=== PATIENT | male | born 1940 | race Caucasian/White ===

== ENCOUNTER 2019-11-11 11:43 | Inpatient (IN) ==
[2019-11-11] MEDS ORDERED: Nitroglycerin 0.4 MG TAB.SUBL SL PRN (12:57)
[2019-11-11] MEDS ORDERED: Saline Nasal Spray 44 ML BOTTLE NS PRN (12:57)
[2019-11-11] MEDS ORDERED: hydrOXYzine pamoate 25 MG CAPSULE PO PRN (12:57)
[2019-11-11] MEDS: carvediloL 6.25 MG TABLET PO SCH (17:40)
[2019-11-11] MEDS ORDERED: Furosemide 20 MG TABLET PO PRN (18:24)
[2019-11-11] MEDS ORDERED: Insulin DETEMIR 100 UNIT/ML X5UNITS SQ SCH (21:00)
[2019-11-11] MEDS: Melatonin 3 MG TABLET PO PRN (21:23)
[2019-11-12 07:01] LABS: Hematocrit 37.9 % (37.5-50.1); Hemoglobin 12.3 g/dL (12.9-16.9); Mean Corpuscular HGB Conc 32.5 g/dL (31.6-35.5); Mean Corpuscular Hemoglobin 32.6 pg (28.0-33.3); Mean Corpuscular Volume 100.5 fL (83.0-100.0); Mean Platelet Volume 10.2 fL (9.4-12.4); Platelet Count 219 K/mcL (140-400); Red Blood Count 3.77 M/mcL (4.19-5.50); Red Cell Distribution Width 13.5 % (11.5-14.5); White Blood Count 4.9 K/mcL (4.3-11.1)
[2019-11-12 07:19] LABS: BUN/Creatinine Ratio 17 (6-26); Blood Urea Nitrogen 15 mg/dL (8-23); Carbon Dioxide 35 mEq/L (23-29); Chloride 101 mEq/L (98-107); Glucose 86 mg/dL (70-105); Magnesium 1.7 mg/dL (1.6-2.6); Osmolality,Calculated 290 (280-300); Potassium 4.3 mEq/L (3.5-5.1); Sodium 140 mEq/L (136-145); eGFR For African Americans > 60 (> 60); eGFR For Non-African Americans > 60 (> 60)
[2019-11-12] MEDS: carvediloL 6.25 MG TABLET PO SCH ×2 (08:00→16:43)
[2019-11-12] MEDS: Loratadine 10 MG TABLET PO SCH (08:00)
[2019-11-12] MEDS: Aspirin Enteric Coated 81 MG Tablet PO SCH (08:00)
[2019-11-12] MEDS: amLODIPine 5 MG TABLET PO SCH (08:00)
[2019-11-12] MEDS: JARDIANCE 10MG PO SCH (08:01)
[2019-11-12] MEDS ORDERED: Dextrose Gel 15 GM/37.5 ML TUBE PO PRN ×2 (16:25)
[2019-11-12] MEDS ORDERED: D5% in Water 1,000 ML IVC PRN (16:25)
[2019-11-12] MEDS ORDERED: *HR* Dextrose 50 % in Water (Vial) 50 ML VIAL IVP PRN (16:25)
[2019-11-12] MEDS: Insulin LISPRO 300 UNITS/3 ML VIAL SQ SCH (16:54)
[2019-11-12] MEDS: Insulin DETEMIR 100 UNIT/ML X5UNITS SQ SCH (22:24)
[2019-11-13] MEDS: Insulin LISPRO 300 UNITS/3 ML VIAL SQ SCH ×3 (09:44→17:10)
[2019-11-13] MEDS: Insulin DETEMIR 100 UNIT/ML X5UNITS SQ SCH ×2 (09:45→20:11)
[2019-11-13] MEDS: amLODIPine 5 MG TABLET PO SCH (09:45)
[2019-11-13] MEDS: Aspirin Enteric Coated 81 MG Tablet PO SCH (09:46)
[2019-11-13] MEDS: Furosemide 20 MG TABLET PO SCH (09:46)
[2019-11-13] MEDS: carvediloL 6.25 MG TABLET PO SCH ×2 (09:46→17:10)
[2019-11-13] MEDS: JARDIANCE 10MG PO SCH (09:46)
[2019-11-13] MEDS: Loratadine 10 MG TABLET PO SCH (09:46)
[2019-11-13] MEDS: Cyanocobalamin (B-12) 1,000 MCG TABLET PO SCH (13:34)
[2019-11-14] MEDS: Aspirin Enteric Coated 81 MG Tablet PO SCH (08:05)
[2019-11-14] MEDS: Insulin DETEMIR 100 UNIT/ML X5UNITS SQ SCH ×2 (08:05→20:04)
[2019-11-14] MEDS: Furosemide 20 MG TABLET PO SCH (08:05)
[2019-11-14] MEDS: Insulin LISPRO 300 UNITS/3 ML VIAL SQ SCH ×3 (08:06→16:41)
[2019-11-14] MEDS: amLODIPine 5 MG TABLET PO SCH (08:06)
[2019-11-14] MEDS: Loratadine 10 MG TABLET PO SCH (08:06)
[2019-11-14] MEDS: carvediloL 6.25 MG TABLET PO SCH ×2 (08:06→16:41)
[2019-11-14] MEDS: JARDIANCE 10MG PO SCH (08:07)
[2019-11-15] MEDS: Insulin LISPRO 300 UNITS/3 ML VIAL SQ SCH ×3 (07:41→16:48)
[2019-11-15] MEDS: amLODIPine 5 MG TABLET PO SCH (08:29)
[2019-11-15] MEDS: Aspirin Enteric Coated 81 MG Tablet PO SCH (08:29)
[2019-11-15] MEDS: Loratadine 10 MG TABLET PO SCH (08:30)
[2019-11-15] MEDS: Furosemide 20 MG TABLET PO SCH (08:30)
[2019-11-15] MEDS: carvediloL 6.25 MG TABLET PO SCH ×2 (08:30→16:12)
[2019-11-15] MEDS: JARDIANCE 10MG PO SCH (08:30)
[2019-11-15] MEDS: Insulin DETEMIR 100 UNIT/ML X5UNITS SQ SCH ×2 (08:33→20:30)
[2019-11-15] MEDS: Cyanocobalamin (B-12) 1,000 MCG TABLET PO SCH (12:15)
[2019-11-15] MEDS: Melatonin 3 MG TABLET PO PRN (22:13)
[2019-11-16] MEDS: amLODIPine 5 MG TABLET PO SCH (08:52)
[2019-11-16] MEDS: carvediloL 6.25 MG TABLET PO SCH ×2 (08:52→17:03)
[2019-11-16] MEDS: Aspirin Enteric Coated 81 MG Tablet PO SCH (08:53)
[2019-11-16] MEDS: Loratadine 10 MG TABLET PO SCH (08:53)
[2019-11-16] MEDS: Furosemide 20 MG TABLET PO SCH (08:53)
[2019-11-16] MEDS: Insulin LISPRO 300 UNITS/3 ML VIAL SQ SCH ×3 (12:18→17:02)
[2019-11-16] MEDS: JARDIANCE 10MG PO SCH (12:19)
[2019-11-16] MEDS: Insulin DETEMIR 100 UNIT/ML X5UNITS SQ SCH ×2 (12:19→21:15)
[2019-11-16] MEDS: Melatonin 3 MG TABLET PO PRN (21:14)
[2019-11-17] MEDS: Loratadine 10 MG TABLET PO SCH (08:53)
[2019-11-17] MEDS: Furosemide 20 MG TABLET PO SCH (08:53)
[2019-11-17] MEDS: amLODIPine 5 MG TABLET PO SCH (08:53)
[2019-11-17] MEDS: Aspirin Enteric Coated 81 MG Tablet PO SCH (08:53)
[2019-11-17] MEDS: JARDIANCE 10MG PO SCH (08:54)
[2019-11-17] MEDS: carvediloL 6.25 MG TABLET PO SCH ×2 (08:54→16:59)
[2019-11-17] MEDS: Insulin LISPRO 300 UNITS/3 ML VIAL SQ SCH ×3 (08:54→16:25)
[2019-11-17] MEDS: Insulin DETEMIR 100 UNIT/ML X5UNITS SQ SCH ×2 (09:07→21:03)
[2019-11-17] MEDS: Cyanocobalamin (B-12) 1,000 MCG TABLET PO SCH (11:52)
[2019-11-17] MEDS: Melatonin 3 MG TABLET PO PRN (21:03)
[2019-11-18] MEDS: Insulin LISPRO 300 UNITS/3 ML VIAL SQ SCH ×3 (08:15→17:00)
[2019-11-18] MEDS: Furosemide 20 MG TABLET PO SCH (08:16)
[2019-11-18] MEDS: carvediloL 6.25 MG TABLET PO SCH ×2 (08:16→17:01)
[2019-11-18] MEDS: Loratadine 10 MG TABLET PO SCH (08:16)
[2019-11-18] MEDS: Insulin DETEMIR 100 UNIT/ML X5UNITS SQ SCH ×2 (08:16→20:22)
[2019-11-18] MEDS: amLODIPine 5 MG TABLET PO SCH (08:16)
[2019-11-18] MEDS: Aspirin Enteric Coated 81 MG Tablet PO SCH (08:16)
[2019-11-18] MEDS: JARDIANCE 10MG PO SCH (08:17)
[2019-11-19 06:15] VITALS: BP 129/64
[2019-11-19] MEDS: Insulin LISPRO 300 UNITS/3 ML VIAL SQ SCH ×2 (08:11→12:16)
[2019-11-19] MEDS: Loratadine 10 MG TABLET PO SCH (08:12)
[2019-11-19] MEDS: Furosemide 20 MG TABLET PO SCH (08:12)
[2019-11-19] MEDS: Aspirin Enteric Coated 81 MG Tablet PO SCH (08:12)
[2019-11-19] MEDS: amLODIPine 5 MG TABLET PO SCH (08:12)
[2019-11-19] MEDS: carvediloL 6.25 MG TABLET PO SCH (08:12)
[2019-11-19] MEDS: JARDIANCE 10MG PO SCH (08:13)
[2019-11-19] MEDS: Insulin DETEMIR 100 UNIT/ML X5UNITS SQ SCH (08:30)
== END 2019-11-19 13:28 | disposition home health service (06) | DRG 291 ==
LOC: INPPIK 12:59
PROVIDERS: ADMIT Family Medicine; ATTEND Family Medicine